=== PATIENT | female | born 1980 | race Caucasian/White ===

== ENCOUNTER 2017-01-01 11:27 | Emergency (ER) | payer OTHER ==
[2017-01-01 11:50] VITALS: RESP 14; TEMP 97.4
--- NOTE | 2017-01-01 12:58 | PDOC ---
General Adult HPI - General Chief Complaint: Head Problem / Injury Stated Complaint: FEELS LIKE BACK OF HEAD SWELLING Date Seen by Provider: 01/01/17 Time Seen by Provider: 11:30 Source: POSITIVE: Patient Exam Limitations: POSITIVE: No limitations Nurse's Notes Reviewed & Considered: Yes - History of Present Illness Initial Comment: The patient is a 36-year-old female. She lives in [place] and is here vacationing at [facility]. She states that for the past 2-1/2 days she has had some discomfort to the right occipital and upper cervical area, with the sensation of some "swelling"in this area. Her daughter checked to this area and discovered a rash along the right occipital hairline and upper paracervical area. Patient complains of some right sided scalp discomfort with palpation and turning her head to the left. She states she checked her body, especially the scalp and neck for ticks and could not find any. She's had no fevers or chills. No cardiopulmonary, GI or symptoms. No neurologic symptoms. She denies any vesicular lesions. Patient has recently sustained a sunburn to her arms. She has taken some Tylenol yesterday for her discomfort. She denies any chronic medical problems; she has had a LAP-BAND procedure, hysterectomy, cholecystectomy, and a tonsillectomy. He does not smoke. She occasionally drinks alcohol. Have you received a tetanus shot in the past 10 years?: Yes Body Location Affected: REPORTS: Head, Other (Skin, as above, rash.) Timing: REPORTS: Constant Duration: >24 hours (Approximately 2-1/2 days) Severity: Mild Quality: REPORTS: Sharpness (Right side of scalp) Context: DENIES: None, Sitting, Standing, Activity, Emotional stress, Coughing, Recent Trauma, Recent Surgery, Sleep, Rest, Lifting, Turning, Bending, Fall, Near Fall, Other Modifying Factors: improves with: Other (Some discomfort on direct palpation) Similar Symptoms Previously: No Recent Care Received: REPORTS: Denies Any Prior Injuries Related to Current Complaint?: No - Patient Home Medications Home Medications: Home Medications Acetaminophen [Tylenol] 500 mg PO Q6H PRN 01/01/17 Triamcinolone Acetonide 15 gm TP Q8H #1 cream.gm. 01/01/17 - Patient Allergies Allergies/Adverse Reactions: Allergies Allergy/AdvReac Type Severity Reaction Status Date / Time No Known Allergies Allergy Verified 01/01/17 11:36 Past Medical History - heen HEENT History: Denies History Cardiovascular History: Denies History Respiratory History: Denies History Gastrointestinal History: Other (please comment) Additional Gastrointestinal History: LAP BAND Genitourinary History: Denies History Endocrine History: Denies History Musculoskeletal History: Denies History Prosthesis or Implant: Yes (LAP BAND) Neurological History: Denies History Blood Disorders: Denies History Psychiatric History: Denies History History of Sexually Transmitted Diseases: No Female Reproductive History: Hysterectomy Additional Female Reproductive History: PARTIAL HYST Obstetrical History: Delivery, Other (please comment) Additional Obstetrical History: ECTOPIC WITH SURGICAL REMOVAL Cancer History: Denies History In Past Year Been Physically Harmed or Verbally Threatened: No (PER PATIENT) History of MDRO: No History of Other Communicable Diseases: No Tobacco Use: Never Smoker Alcohol Use: Occasionally Substance Use Type: None Previous Surgical History: Yes Type / Date of Surgery: PARTIAL HYSTERECTOMY, LAP BAND PLACEMENT, TONSILLECTOMY , CHOLECYSTECTOMY, x1, ECTOPIC REMOVAL Anesthesia Reactions: Yes Malignant Hyperthermia: Yes Family History of Malignant Hyperthermia: Yes Significant Family History: No pertinent family hx Past Medical History Reviewed: Reviewed - No Changes ROS - Limitations ROS Limitations: No Limitations Constitution: REPORTS: Denies Symptoms Cardiovascular: REPORTS: Denies Cardiac Symptoms Respiratory: REPORTS: Denies Resp Symptoms Neurological: REPORTS: Denies Neuro Symptoms Gastrointestinal: REPORTS: Denies GI Symptoms Endocrine: REPORTS: Denies Symptoms Musculoskeletal: REPORTS: Denies MS Symptoms Genitourinary: REPORTS: Denies Symptoms Eyes: REPORTS: Denies Symptoms ENT: REPORTS: Denies Symptoms Skin: REPORTS: Rash (Around hairline of the right occipital area; see diagram) Lympathic: REPORTS: Denies Lympathic Symptoms Immunologic: POSITIVE: Denies Symptoms Psychiatric: POSITIVE: Denies Psych Symptoms General Adult Exam - General Appearance General Appearance: POSITIVE: Alert, Cooperative, No Acute Distress, No Evidence of Trauma - HEENT HEENT: POSITIVE: Head Inspection Nml, Eyes Inspection Nml, Ears Inspection Nml, Nose Inspection Nml, Oral/Dental Inspect. Nml, Pharynx Inspect. Nml, PERRL, EOMI - Pupils Pupil Size: 4 mm: Bilateral (PERRLA) - Neck Neck: POSITIVE: Normal Inspection, Thyroid Normal - Respiratory Respiratory: POSITIVE: No Respiratory Distress, Breath Sounds Normal, Chest Non- Tender - Cardiovascular Cardiovascular: POSITIVE: Regular Rate & Rhythm, No Murmur, No Gallop, PMI Normal Peripheral Pulses: Radial (R): 2+, Radial (L): 2+ - Abdomen Abdomen: Soft: (All Quadrants), Normal Bowel Sounds: (All Quadrants), Denies Tenderness: (All Quadrants), No Splenomegaly: (All Quadrants), No Hepatomegaly: (All Quadrants), No Guarding: (All Quadrants), No Rebound: (All Quadrants), No Palpable Pulse: (All Quadrants), No Palpabale Mass: (All Quadrants), No Distention: (All Quadrants), No Rigidity: (All Quadrants) - Back Back: POSITIVE: Normal Inspection - Skin Skin: POSITIVE: Normal Color, Warm, Dry, Rash (Primarily macular rash, confluent , around the hairline of the posterior aspect of the right scalp. This is primarily right of midline but does seem to cross midline to the left. There are no vesicles or lesions suspicious of shingles. No adenopathy. Patient states the scalp on the right occipital and occipital parietal area is sometimes tender on palpation. No ticks; no bite pickens.). 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, Motor Normal, Sensation Normal, 5, 6 Images - Head Head: 1 - Macular rash General Adult Progress - Patient's Progress Pain Medication Addressed: POSITIVE: Not Applicable School/Work Release Addressed: POSITIVE: Not Applicable Re-Examine Time: 11:50 Status: POSITIVE: Unchanged Antibiotics Given: No - Consult Counseled: POSITIVE: Patient, RE: DX, RE: Need for F/U Patient Care Time - Estimated PCT Patient Care Time (In Minutes): 20 Vital Signs - Recent Vital Signs Vital Signs: Vital Signs (Last 8 hours) Temp Pulse Resp BP Pulse Ox 01/01/17 11:27 97.4 F 86 14 117/81 95 - VS Reviewed Vital Signs Reviewed: Yes Discharge Clinical Impression: Rash Discharge Disposition: Discharged to Home Condition: Good Prescriptions / Orders: Triamcinolone Acetonide 15 gm TP Q8H #1 cream.gm. Patient Instructions Given at Discharge: Acute Rash (ED) Additional Instructions: I am not sure what the source of the rash you have on the base of your head, right side, and this rash does seem to extend up into the right side of your scalp in the back. I believe this rash is what is causing you to have some scalp discomfort. I see no evidence of any serious pathology ongoing. I believe you're going to be fine. Try massaging triamcinolone into the rash 3 times daily. Avoid sun exposure. Return any time if you develop fevers, extension of the rash, or any increasse in your symptoms in any way. Follow-up with your primary care provider. Follow Up With: NONE,NONE [Primary Care Provider] - (Instructions as above. Return anytime if condition worsens in any way. Follow-up with your primary care provider.)
== END 2017-01-01 12:17 | disposition home or self-care (01) ==
LOC: ER 11:27
DX: R21 Rash and other nonspecific skin eruption (principal); M54.2 Cervicalgia; R51 Headache
CPT/HCPCS: 99282